=== PATIENT | female | born 1965 | race Caucasian/White ===

== ENCOUNTER 2024-11-18 17:17 | Emergency (ER) | payer BC, SELFPAY ==
[2024-11-18] VITALS (17 sets, daily range): BP systolic 145–156; BP diastolic 91–102; PULSE 94–130; RESP 10–20; TEMP 36.6; O2SAT 98–100; BMI 25.4
--- OUTSIDE RECORDS SUMMARY | 2024-11-18 17:19 | XMS_ITS | Clinical Summary ---
Author Organization [employer] [facility] Address [address] [place] [id number] Care Team Providers Care Clipper Machine Name Role Phone NoahHaylee MD Primary Care Provider Allergies No known active allergies Medications multivitamin (MVI) tablet Take 1 tablet by mouth. Take one tablet daily. Vitamin has additional vit d 0 0 Active cyclobenzaprine (FLEXERIL) 10 mg tabletIndications: Osteoarthritis of cervical spine, unspecified spinal osteoarthritis complication status Take 1 Tablet (10 mg) by mouth in the morning and 1 Tablet (10 mg) in the evening. 20 Tablet 2 Active hydrOXYzine pamoate (VISTARIL) 25 mg capsuleIndications :Anxiety Take 1-2 Capsules (25-50 mg) by mouth 3 times daily if needed for Anxiety. 15 capsule. 2 Active LORazepam (ATIVAN) 0.5 mg tabIndications:Anx iety Take 1-2 Tablets (0.5-1 mg) by mouth every 6 hours if needed for Anxiety. 15 tablet. 2 Active alendronate (FOSAMAX) 70 mg tabletIndications: Osteoporosis, unspecified osteoporosis type, unspecified pathological fracture presence Take 1 Tablet (70 mg) by mouth once a week in the morning. Take on empty stomach with full glass of water. Do not lie down for 1 hr. 12 Tablet 3 2 Active atovaquone-proguan il, 250-100 mg, (MALARONE) 250-100 mg tabletIndications: Need for malaria prophylaxis Take 1 Tablet by mouth once daily. Start 1-2 days prior to departure and continue for 1 week after return. 25 Tablet 3 Active Active Problems Problem Noted Date Diagnosed Date Pap smear for cervical cancer screening 02/22/20 22 Overview (05/01/2022): Plan: Pap and HPV 02/2027 Adenomatous colon polyp 07/23/2016 Overview (06/07/2022): Colonoscopy 07/2016 polyps repeat in 5 years Colonoscopy 05/2022 moderate diverticuli, repeat in 7-10 years, Pediatrics scope, propofol Stress incontinence 05/04/2013 Vitamin D deficiency 08/16/2009 Dermatophytosis of nail 07/23/2007 Overview (07/23/2007): toenails. has been treated with sporonox in the past. Osteoarthrosis, unspecified whether generalized or localized, unspecified site 07/23/2007 Overview (07/23/2007): neck Other general counseling and advice for contraceptive management 07/23/2007 Resolved Problems Problem Noted Date Diagnosed Date Resolved Date Lung nodule 03/03/2012 05/04/2013 Overview (03/03/2012): 5.6 mm nodule rll. Desiree Floyd M.D. 03/03/2012 10:00 PM Immunizations Immunization Administration Dates Next Due AMB Influenza, (Flumist) Bonita e Intranasal,LAIV4 (Flu Clinic Only) 07/08/2012 AMB Influenza, IIV3 (Age >=3 years)(Flu Clinic Only) 06/19/2013,07/04/2011,08/09/2010,2008,08/02/2008 AMB Influenza, IIV4 PF (=>6 mos Flulaval,Fluzone Fluarix)(Flu Clinic Only) 07/15/2018,06/18/2014 Hepatitis A (Adult) 07/22/2007,09/22/1997 Influenza RIV4 (Age 18+ Year s) PRESERV FREE 07/20/2022,05/10/2021 Influenza, IIV3 (Age >=3 years) 07/01/2007 Influenza, IIV4 07/02/2019, 8,06/27/2016,2014 Influenza, IIV4 (=>6mos) MDV 06/09/2020 Lyme Disease Vaccine 01/08/2000,02/03/1999,01/03 Td (Age >=7 Years) 09/22/1997 Tdap 10/18/2016,07/22/2007 Typhoid (injectable) 09/24/2022,11/20/2012 Zoster (Shingrix-RZV, recombinant) 06/09/2020, Family History Medical History Relation Name Comments Diabetes Father Heart Disease Father 4 bypass in 60 s, now in 80s, also leg bypass Heart Disease Mother tachycardia Other Mother Anesthesia Problem No Family History Blood Disease No Family History Cancer-breast No Family History Cancer-colon No Family History Relation Name Status Comments Father (Age 87) Mother Alive Social History Tobacco Use Types Packs/Day Years Used Date Smoking Tobacco: Never Smokeless Tobacco: Never Tobacco Cessation:Counseling Given: Yes Alcohol Use Standard Drinks/Week Comments Yes 0 (1 standard drink = 0.6 oz pur e alcohol) rarely PHQ-2 Answer Date Recorded PHQ-2 TOTAL SCORE 0 02/21/2022 Social Connections Answer Date Recorded Frequency of Communication with Friends and Fami ly Not on file 02/21/2022 Comments No Sex and Gender Information Value Date Recorded Sex Assigned at Not on file 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 Gender Identity Not on file Sexual Orientation Not on file 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 Not on file Not on file Not on file Obstetrics History Para Term AB IAB SAB Ectopic Multiple Livin g Live Births 3 3 3 Date Outcome GA Total Labor Labor/2nd/3rd Weight Sex Type Anes PTL Bonita A1 A5 Name Clin Para Para Para Last Filed Vital Signs Vital Sign Reading Time Taken Comments Blood Pressure 126/83 02/21/2022 8:22 AM CDT Pulse 118 02/21/2022 8:22 AM CDT Temperature 36.4 C (97.6 F) 08/24/2019 1:30 PM IT PROGRAMMER ANALYST Respiratory Rate 16 08/24/2019 2:15 PM IT PROGRAMMER ANALYST Oxygen Saturation 100% 02/21/2022 8:22 AM CDT Inhaled Oxygen Concentration - - Weight 57 kg (125 lb 9.6 oz) 02/21/2022 8:22 AM CDT Height 153 cm (5' 0.25) 02/21/2022 8:22 AM CDT Body Mass Index 24.33 02/21/2022 8:22 AM CDT Plan of Treatment Upcoming Encounters Date Type Department Care Team (Late st Contact Info) Description 12/09/2024 7:20 AM CDT Ancillary Procedure [facility] [address] [place] [address] 12/09/2024 8:00 AM CDT Office Visit [facility] [address] [place] [address] Haylee Zamora MD [address] [place] [address] Health Maintenance Due Date Last Done Comments HIV for age 15-65 1979 Pneumococcal series for age 50+ (1 of 1 - PCV) 2014 BMI (ht and wt on same day) for age 18+ 02/21/2023 02/21/2022, 08/13/2019, 07/02/2019, Additional history exists Depression screening for age 12+ 02/21/2023 02/21/2022, 08/13/2019, 10/18/2016 Mammogram for age 45-75 02/21/2023 02/22/20, 10/18/2016, 10/02/2015, Additional history exists COVID-19 vaccine series (2023- season) 2024 08/28/2021, 12/29/2020, 12/09/2020 Influenza Vaccine (#1) 2024 2, 05/10/2021, 06/09/2020, Additional history exists Lipids for age 45-75 07/02/2024 07/02/2019, 10/18/2016, 06/16/2012, Additional history exists Tetanus booster 10/18/2026 10/18/2016, 07/09, 09/22/1997 Pap test for age 21-65 02/21/2027 2, 02/21/2022, 10/02/2015, Additional history exists Colonoscopy through age 75 06/07/202706/07, 06/07/2022, 07/19/2016, Additional history exists RSV vaccine for adults or (1 - 1-dose 75+ series) 2039 Tdap Completed 10/18/2016, 07/22/2007 Zoster (shingles) series for age 50+ Completed 06/09/2020, 02/24/2020 Hepatitis C screening for ag e 18-79 Completed 02/21/2022 Procedures Procedure Name Priority Date/Time Associated Diagnosis Comments COLONOSCOPY 06/07/2022 7:41 AM CDT ANTI HCV Routine 02/21/2022 9:23 AM CDT Need for hepatitis C screening test HPV HIGH RISK Routine 02/21/2022 9:05 AM CDT Cervical cancer screening XR MAMMO BILAT SCREENING Routine 02/21/2022 8:15 AM CDT Visit for screening mammogram LIPID PANEL W REFLEX MEASURED LDL Routine 07/02/2019 11:13 AM CDT Lipid screening from Last 3 Months or Most Recently Relevant to Health Maintenance Results * COLONOSCOPY (06/07/2022 7:41 AM CDT) 06/07/2022 7:41 AM CDT Narrative Transcriptions Brett Chahal MD - 06/07/2022 8:34 AM CDT Patient Name: Yudy Rosa Procedure Date: 06/07/2022 Gender: Female Date of : 1965 Admit Type: Outpatient Procedure: Colonoscopy Proceduralist: Brett Chahal MD , Kimberly Solis (Nurse), Berna Bravo (Nurse) Indications/Pre-Op Diagnosis: High risk colon cancer surveillance:Personal history of adenoma less than 10 mm in size, Last colonoscopy: July 2016 Medications: Fentanyl 200 micrograms IV, Midazolam 4 mgIV, The level of sedation administered wasmoderate Procedure Description: The patient had risks, benefits and alternatives explained to andgave informed consent. The patient had a stable cardiopulmonary status and judged an adequate candidate for conscious sedation. The [id number] was passed through the anus and advanced tothe cecum, identified by appendiceal orifice and ileocecal valve. The colonoscopy was performed without difficulty. The patient toleratedthe procedure well. The quality of the bowel preparation was good. The ileocecal valve, appendiceal orifice, and rectum were photographed. Complications: No immediate complications. Estimated Blood Loss & Specimen: Estimated blood loss: none. Specimen collected - None Findings: The perianal and digital rectal examinations were normal. Multiple small-mouthed diverticula were found in the sigmoid colon. There was narrowing of the colon in association with the diverticular opening. The exam was otherwise without abnormality. Impressions/Post-Op Diagnosis: - Moderate diverticulosis in the sigmoid colon. There was narrowingof the colon in association with the diverticular opening. - The examination was otherwise normal. - No specimens collected. Recommendation: - Patient has a contact number available for emergencies. The signsand symptoms of potential delayed complications were discussed with the patient. Return to normal activities tomorrow. Written discharge instructions were provided to the patient. - Resume previous diet. - Continue present medications. - Repeat colonoscopy in 7-10 years for surveillance with a pediatric scope. - Patient's sedation for a repeat study will require Anesthesia staff assistance. Moderate Sedation: A time out was performed before the procedure. Moderate (conscious) sedation was administered by the endoscopy nurse and supervised bythe endoscopist. The following parameters were monitored: oxygensaturation, heart rate, blood pressure, EKG, CO2, respiratory rate, adequacy of pulmonary ventilation and reponse to care. Please refer to the patient's medical record flowsheets and nursing notes for moderate sedation details. Total physician intraservice time was 20 minutes. Brett Chahal MD 06/07/2022 8:34:16 AM This report has been signed electronically. Note Initiated On: 06/07/2022 7:41 AM Procedure Code(s): --- Professional --- 47898, Colonoscopy, flexible; diagnostic, including collection of specimen(s) bybrushing or washing, when performed (separateprocedure) Diagnosis Code(s): --- Professional --- Z86.010, Personal history of colonicpolyps K57.30, Diverticulosis of large intestine without perforation or abscess withoutbleeding CPT copyright 2020 [employer]. All rights reserved. The codes documented in this report are preliminary and upon tie carrier reviewmay be revised to meet current compliance requirements. Scope In: 8:09:57 AM Scope Withdrawal Time 0 hours 9 minutes 22 seconds Scope Out: 8:28:01 AM Brett Chahal MD PROCEDURE ORD Final Res ult * ANTI HCV (02/21/2022 9:23 AM CDT) HEPATITIS C ANTIBODY Non-React lucia Non-React lucia 02/21/2022 9:21 PM CDT [facility] Comment:Antibodies to HCV no t detected; does not exclude the possibility of exposure to HCV. Blood BLOOD SPECIMEN / Unknown Venipuncture / Unknown 02/21/2022 9:23 AM CDT 02/21/2022 9:24 AM CDT Haylee Zamora MD SEND OUTS Final R esult [facility] [address] [place] [address], * HPV HIGH RISK (02/21/2022 9:05 AM CDT) TYPE 16 Negative Negative 02/25/2022 11:46 AM CDT [facility] TYPE 18 Negative Negative 02/25/2022 11:46 AM CDT [facility] OTHER HIGH RISK TYPES Negative Negative 02/25/2022 11:46 AM CDT [facility] Other (Cervical) Non-Blood / Unknown 02/21/2022 9:05 AM CDT 02/22/2022 8:10 AM CDT Narrative [facility] - 02/25/2022 11:46 AM CDT HPV types 16, 18, 31, 33, 35, 39, 45, 51, 52, 56, 58, 59, 66 and 68 DNA were undetectable or below the pre-set threshold. Methodology: Destination Media Lindsay 4800 HPV Test us Haylee Zamora MD MICROBIOLOGY Final R esult [facility] [address] [place] [address], * XR MAMMO BILAT SCREENING (02/21/2022 8:15 AM CDT) Anatomical Region Laterality Modality BREASTS, Breast Left, Breast Right Bilateral Mammography Impressions 02/21/2022 3:51 PM CDT There is no radiographic evidence for malignancy. Recommend annual mammograms. MAMMOGRAM ASSESSMENT: ACR 1 Negative PATIENTS: You will also receive a letter with your examination results in an easy to read format. If you have questions about your results, please contact your referring provider. Narrative 02/21/2022 3:51 PM CDT For Patients: As a result of the Century Cures Act, medical imaging exams and procedure reports are released immediately into your electronic medical record. You may view this report before your referring provider. If you have questions, please contact your health care provider. XR MAMMO BILAT SCREENING [[id number]] CLINICAL HISTORY: This is an asymptomatic 56 y.o. patient. INDICATION FOR EXAM: Mammogram Screening. TECHNIQUE: CC & MLO views were obtained. This study was evaluated with the assistance of Computer-Aided Detection. COMPARISON FILM: Yes 10/18/16 [facility] 10/02/15 [facility] FINDINGS: The breasts have scattered areas of fibroglandular density. There are no dominant masses, suspicious micro calcifications or areas of architectural distortion. Haylee Zamora MD MAMMO Final R esult * (ABNORMAL) LIPID PANEL W REFLEX MEASURED LDL (07/02/2019 11:13 AM CDT) CHOLESTEROL,TOTAL 202(H) 100 - 199 mg/dL 07/02/2019 6:34 PM CDT [facility] TRIGLYCERIDES 44 <150 mg/dL 07/02/2019 6:34 PM CDT [facility] HDL CHOLESTEROL 72 >40 mg/dL 9 6:34 PM CDT [facility] NON-HDL CHOLESTEROL 130 <145 mg/dl 07/02/2019 6:34 PM CDT [facility] CHOL/HDL RATIO 2.81 <4.50 07/02/2019 6:34 PM CDT [facility] LDL CHOLESTEROL 121 <=130 mg/dL 07/02/2019 6:34 PM CDT [facility] PROVIDER ORDERED STATUS RANDOM 07/02/2019 6:34 PM CDT [facility] Blood BLOOD SPECIMEN / Unknown Venipuncture / Unknown 07/02/2019 11:13 AM CDT 07/02/2019 11:13 AM CDT Haylee Zamora MD CHEMISTRY Final R esult [facility] [address] [place] [address], [place] from Last 3 Months or Most Recently Relevant to Health Maintenance Insurance [employer] [id number] [facility] Advance Directives * Full Code (Latest Code Status on File) Date Activated Date Inactivated Comments 08/24/2019 7:08 AM 08/24/2019 4:40 PM Care Teams Clipper Machine Relationship Specialty Start Date End Date Haylee Zamora MD [address] [place] [address] PCP - General Family Practice 09/05/15
[2024-11-18 17:52] LABS: Basophils Absolute Auto 0.06 K/uL (0.00-0.30); Basophils Percent Auto 0.8 % (0.0-3.0); Eosinophils Absolute Auto 0.29 K/uL (0.00-0.50); Eosinophils Percent Auto 3.7 % (0.0-7.0); Hematocrit 40.8 % (33.0-51.0); Hemoglobin* 14.2 gm/dL (12.0-16.0); Immature Granulocytes Abs Auto 0.01 K/uL (0.00-0.30); Immature Granulocytes Pct Auto 0.1 %; Lymphocytes Absolute Auto 3.32 K/uL (0.90-2.90); Lymphocytes Percent Auto 42.1 % (20-44); Mean Corpuscular HGB Conc 35 gm/dL (32-36); Mean Corpuscular Hemoglobin 30 pg (26-34); Mean Corpuscular Volume 87 fL (80-100); Monocytes Percent Auto 5.8 % (0.0-11.0); Neutrophils Absolute Auto 3.75 K/uL (1.7-7.0); Neutrophils Percent Auto 47.5 % (42.0-72.0); Platelet Count* 347 K/uL (140-440); RDW Coefficient of Variation % 11.8 % (11.5-15.5); Red Blood Count 4.71 m/uL (4.00-5.20); White Blood Count* 7.89 K/uL (4.50-11.00)
--- NOTE | 2024-11-18 17:58 | ED.GENADULT ---
HPI - General Adult General Date Seen: 11/18/24 Chief complaint: Dizziness/Vertigo Stated complaint: lightheaded Time Seen by Provider: 11/18/24 17:23 Source: patient Mode of arrival: ambulatory Limitations: no limitations History of Present Illness HPI narrative: Patient is a 59-year-old female with no pertinent medical issues presenting to the emergency department for lightheadedness. She states for the past week she will have lightheadedness every time she wakes up and will improved by the end of the day. She states when she is driving to work in the morning she feels like it is difficult a but by the time she drives home everything seems normal. Symptoms were not improving today so she decided to come and get evaluated. She describes her symptoms as lightheadedness. Denies any sensation the room is spinning. Has not noticed any changes in her vision but does states she feels ?foggy.?Does not have any history of heart disease but her father had a heart attack at age 60. Denies ever having symptoms like this before. No associated chest pain or shortness of breath. Nothing really seems to make it better or worse. Has not had any syncopal episodes since the symptoms started. Does states she has syncopal episode a few years ago due to anxiety for a nose procedure. Admits to feeling stuffiness in her sinuses and is wondering if that could be related. Of note she is tachycardic in the 120s. She states that is normal for her whenever she sees a doctor. States this is she walks into the doctor's office she will feel her heart start racing like this and usually improves as she calms down. Has not noticed any palpitations with this lightheadedness. Does not have any chest pain or shortness of breath. Denies headaches, weakness, numbness, abdominal pain, fevers, chills. Not aware of any sick contacts. Related Data Home Medications ?Medication ?Instructions ?Recorded ?Confirmed No Known Home Medications 11/18/24 11/18/24 Allergies Allergy/AdvReac Type Severity Reaction Status Date / Time No Known Drug Allergies Allergy Verified 11/18/24 17:28 Review of Systems Status of ROS: Reports: 10 or more systems reviewed and unremarkable except as noted in History and below PFSH PFSH Social History Smoking Status: Never smoker How often do you have a drink containing alcohol: 2-4 times a month How often do you have six or more drinks on one occasion: Never AUDIT-C Alcohol total score: 2 Non-prescribed substance use: marijuana (any form) Exam Narrative: Exam Narrative: Const: Well-nourished, Well-developed, in mild distress Eyes: PERRL, no conjunctival injection, and symmetrical lids HENT: Atraumatic external nose and ears. Moist mucous membranes. Neck: Symmetric, trachea midline, No thyromegaly. CVS: RRR, No murmurs or gallops. Peripheral pulses 2+ and equal in all extremities RESP: Unlabored respiratory effort. Clear to auscultation bilaterally. GI: Nontender/Nondistended, No rebound or guarding. MSK:Extremities w/o deformity, Normal Active ROM Skin: Warm, Dry. No rashes or lesions. Neuro: Normal Muscle tone, No focal neurological deficits. Psych: Awake, Alert, & Oriented x3. Appropriate mood and affect. Const: Vital Signs, click to edit/add: Vital Signs - 24 hr 11/18/24 17:24 11/18/24 17:40 11/18/24 17:42 Temperature 97.8 F Pulse Rate 122 H Pulse Rate [Pulse Oximeter] 130 H Pulse Rate [orthos tatic lying Pulse Oximeter] Pulse Rate [orthos tatic sitting Puls e Oximeter] Pulse Rate [orthos tatic standing Pul se Oximeter] Respiratory Rate 16 10 L 17 Blood Pressure 151/97 H Blood Pressure [Ri ght Upper Arm] 156/91 H Blood Pressure [or thostatic lying Ri ght Arm] Blood Pressure [or thostatic sitting Right Arm] Blood Pressure [or thostatic standing Right Arm] Pulse Oximetry 100 99 Oxygen Delivery Me thod Room Air 11/18/24 17:45 11/18/24 17:46 11/18/24 17:47 Temperature Pulse Rate 118 H 112 H 114 H Pulse Rate [Pulse Oximeter] Pulse Rate [orthos tatic lying Pulse Oximeter] Pulse Rate [orthos tatic sitting Puls e Oximeter] Pulse Rate [orthos tatic standing Pul se Oximeter] Respiratory Rate 14 20 12 Blood Pressure 148/99 H Blood Pressure [Ri ght Upper Arm] Blood Pressure [or thostatic lying Ri ght Arm] Blood Pressure [or thostatic sitting Right Arm] Blood Pressure [or thostatic standing Right Arm] Pulse Oximetry 100 100 100 Oxygen Delivery Me thod 11/18/24 17:55 11/18/24 17:57 11/18/24 17:58 Temperature Pulse Rate 103 H 106 H Pulse Rate [Pulse Oximeter] Pulse Rate [orthos tatic lying Pulse Oximeter] 103 H Pulse Rate [orthos tatic sitting Puls e Oximeter] 109 H Pulse Rate [orthos tatic standing Pul se Oximeter] 122 H Respiratory Rate 13 Blood Pressure 153/96 H 156/102 H Blood Pressure [Ri ght Upper Arm] Blood Pressure [or thostatic lying Ri ght Arm] 153/96 H Blood Pressure [or thostatic sitting Right Arm] 156/102 H Blood Pressure [or thostatic standing Right Arm] 145/99 H Pulse Oximetry 99 100 Oxygen Delivery Ca thod 11/18/24 18:00 11/18/24 18:01 11/18/24 18:02 Temperature Pulse Rate 105 H 108 H 102 H Pulse Rate [Pulse Oximeter] Pulse Rate [orthos tatic lying Pulse Oximeter] Pulse Rate [orthos tatic sitting Puls e Oximeter] Pulse Rate [orthos tatic standing Pul se Oximeter] Respiratory Rate 11 L Blood Pressure 145/99 H 151/93 H Blood Pressure [Ri ght Upper Arm] Blood Pressure [or thostatic lying Ri ght Arm] Blood Pressure [or thostatic sitting Right Arm] Blood Pressure [or thostatic standing Right Arm] Pulse Oximetry 100 99 98 Oxygen Delivery Ca thod 11/18/24 18:15 11/18/24 18:30 11/18/24 18:45 Temperature Pulse Rate 94 109 H 98 Pulse Rate [Pulse Oximeter] Pulse Rate [orthos tatic lying Pulse Oximeter] Pulse Rate [orthos tatic sitting Puls e Oximeter] Pulse Rate [orthos tatic standing Pul se Oximeter] Respiratory Rate 18 13 12 Blood Pressure Blood Pressure [Ri ght Upper Arm] Blood Pressure [or thostatic lying Ri ght Arm] Blood Pressure [or thostatic sitting Right Arm] Blood Pressure [or thostatic standing Right Arm] Pulse Oximetry 100 100 100 Oxygen Delivery Ca thod 11/18/24 19:00 11/18/24 19:01 Temperature Pulse Rate 97 102 H Pulse Rate [Pulse Oximeter] Pulse Rate [orthos tatic lying Pulse Oximeter] Pulse Rate [orthos tatic sitting Puls e Oximeter] Pulse Rate [orthos tatic standing Pul se Oximeter] Respiratory Rate 10 L 13 Blood Pressure 149/98 H Blood Pressure [Ri ght Upper Arm] Blood Pressure [or thostatic lying Ri ght Arm] Blood Pressure [or thostatic sitting Right Arm] Blood Pressure [or thostatic standing Right Arm] Pulse Oximetry 99 99 Oxygen Delivery Me thod Course Vital Signs Vital signs: Initial Vital Signs Temperature 97.8 F 11/18/24 17:24 Temperature Source Temporal Artery Scan 11/18/24 17:24 Pulse Rate 130 H 11/18/24 17:24 Respiratory Rate 16 11/18/24 17:24 Blood Pressure 156/91 H 11/18/24 17:24 Blood Pressure Mean 112 H 11/18/24 17:24 Blood Pressure Position Sitting 11/18/24 17:24 Pulse Oximetry 100 11/18/24 17:24 Oxygen Delivery Method Room Air 11/18/24 17:24 Vital Signs Temperature 97.8 F 11/18/24 17:24 Pulse Rate 130 H 11/18/24 17:24 Respiratory Rate 16 11/18/24 17:24 Blood Pressure 156/91 H 11/18/24 17:24 Pulse Oximetry 100 11/18/24 17:24 Oxygen Delivery Method Room Air 11/18/24 17:24 Temperature 97.8 F 11/18/24 17:24 Pulse Rate 102 H 11/18/24 19:01 Respiratory Rate 13 11/18/24 19:01 Blood Pressure 149/98 H 11/18/24 19:01 Pulse Oximetry 99 11/18/24 19:01 Oxygen Delivery Method Room Air 11/18/24 17:24 Medications Administered Medications: Discontinued Medications Generic Name Dose Route Start Last Admin Trade Name Freq PRN Reason Stop Dose Admin Lactated Ringer's 1,000 mls @ 1,000 mls/hr 11/18/24 18:01 11/18/24 19:21 Lactated Ringers 1000 Ml IV 11/18/24 19:00 Infused .Q1H ONE Infusion Medical Decision Making MDM Narrative Medical decision making narrative: Patient is a 59-year-old female presenting for lightheadedness. Differential is broad. Includes ACS, electrolyte abnormalities, valvular disorders, vasovagal syncope, dehydration, anemia. She looks well overall him my concern for PE, aortic dissection, aortic aneurysm is low. Will give her some fluids for possible dehydration. Order CBC, BMP, TSH. Also ordered EKG and troponin. Orthostatic blood pressures will be done. Will continue to monitor heart rate to see if it improves. Orthostatic blood pressures showed no concerning findings. Lab work shows no concerning abnormalities. Potassium is very slightly low unlikely to be causing her symptoms. Will replenish this though. EKG shows sinus tachycardia by her heart rate has improved to the 80s after the fluids. She does states she is feeling better. Unsure if this is due to the fluids or chest natural progression of her symptoms. She does states she thinks her lack of sleep is part of her problem. She states she has a very light sleeper and has not been sleeping well the past few weeks. Admits that she did not sleep much at all last night. I informed issues to follow-up with the primary care provider. She agrees with this plan. Lab Data Labs: Lab Results 11/18/24 11/18/24 Range/Units 17:43 17:45 WBC 7.89 (4.50-11.00) K/uL RBC 4.71 (4.00-5.20) m/uL Hgb 14.2 (12.0-16.0) gm/dL Hct 40.8 (33.0-51.0) % MCV 87 (80-100) fL MCH 30 (26-34) pg MCHC 35 (32-36) gm/dL RDW Coeff of Olivia 11.8 (11.5-15.5) % Plt Count 347 (140-440) K/uL Neut % (Auto) 47.5 (42.0-72.0) % Lymph % (Auto) 42.1 (20-44) % [place] % (Auto) 5.8 (0.0-11.0) % Eos % (Auto) 3.7 (0.0-7.0) % Baso % (Auto) 0.8 (0.0-3.0) % Neut # (Auto) 3.75 (1.7-7.0) K/uL Lymph # (Auto) 3.32 H (0.90-2.90) K/uL [place] # (Auto) 0.50 (0.00-0.90) K/UL Eos # (Auto) 0.29 (0.00-0.50) K/uL Baso # (Auto) 0.06 (0.00-0.30) K/uL Abs Immat Gran (auto) 0.01 (0.00-0.30) K/uL Imm/Tot Granulo (auto) 0.1 % Sodium 137 (135-149) mmol/L Potassium 3.2 L (3.6-5.1) mmol/L Chloride 102 (96-114) mmol/L Carbon Dioxide 23 (20-32) mmol/L Anion Gap 12 (7-15) mEq/L BUN 10 (7-30) mg/dL Creatinine 0.6 (0.5-1.5) mg/dL Estimated Creat Clear 71.62 Estimated GFR 103 ml/min Glucose 122 H (60-115) mg/dL Calcium 9.2 (8.4-10.6) mg/dL Magnesium 2.2 (1.5-2.6) mg/dL TSH 3.440 (0.270-4.200) uIU/mL POC Troponin I 0.00 L (0.01-0.04) ng/ml ECG Data Attestation: I personally reviewed and interpreted this ECG as follows: Prior ECG tracings: not available for review Interpretation: Mom sinus tachycardia with a rate of 129 beats per minute, normal intervals, normal axis, no ST or T-wave abnormalities. Discharge Plan Discharge Clinical Impression: Intermittent lightheadedness Patient Disposition: Home, Self-Care Condition: Improved Instructions: Lightheadedness (ED) Additional Instructions: I am not sure what is causing your symptoms but make sure to follow-up with your primary care provider. Return to emergency department for new or worsening symptoms Prescriptions: No Action No Known Home Medications Follow Up/Referrals: Haylee Zamora MD [Primary Care Provider] - Stand Alone Forms: [employer] Info Instructions
[2024-11-18] MEDS: LACTATED RINGERS 1000 ML 1,000 ML IV (18:12)
--- OUTSIDE RECORDS SUMMARY | 2024-11-18 18:36 | XMS_ITS | Clinical Summary ---
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 Not on file Not on file Not [...] 36.4 C (97.6 F) 08/24/2019 1:30 PM [employer] Respiratory Rate 16 08/24/2019 2:15 PM [employer] Oxygen Saturation 100% 02/21/2022 8:22 AM CDT Inhaled Oxygen Concentration - - Weight 57 kg (125 lb 9.6 oz) 02/21/2022 8:22 AM CDT Height 153 cm (5' 0.25) 02/21/2022 8:22 AM CDT Body Mass Index 24.33 02/21/2022 8:22 AM CDT Plan of Treatment Upcoming Encounters Date Type Department Care Team (Late st Contact Info) Description 12/09/2024 7:20 AM CDT Ancillary Procedure [facility] [address] [place] [address] 12/09/2024 8:00 AM CDT Office Visit [facility] [address] [place] [address] Haylee Zamora MD [address] [place] [address] Health Maintenance Due Date Last Done Comments [...] adequate candidate for conscious sedation. The [id number] was passed through the anus and advanced [...] 7:41 AM Procedure Code(s): --- Professional --- 41609, Colonoscopy, flexible; diagnostic, including collection of specimen(s) bybrushing or washing, when performed (separateprocedure) Diagnosis Code(s): --- Professional --- Z86.010, Personal history of colonicpolyps K57.30, Diverticulosis of large intestine without perforation or abscess withoutbleeding CPT copyright 2020 [employer]. All rights reserved. The codes documented in this report are preliminary and upon special education superintendent reviewmay be revised to meet current compliance requirements. Scope In: 8:09:57 AM Scope Withdrawal Time 0 hours 9 minutes 22 seconds Scope Out: 8:28:01 AM Brett Chahal MD PROCEDURE ORD Final Res ult * ANTI HCV (02/21/2022 9:23 AM CDT) HEPATITIS C ANTIBODY Non-React lucia Non-React lucia 02/21/2022 9:21 PM CDT [facility] [facility] Comment:Antibodies to HCV no t detected; does not exclude the possibility of exposure to HCV. Blood BLOOD SPECIMEN / Unknown Venipuncture / Unknown 02/21/2022 9:23 AM CDT 02/21/2022 9:24 AM CDT Haylee Zamora MD SEND OUTS Final R esult [facility] [address] [place] [address], * HPV HIGH RISK (02/21/2022 9:05 AM CDT) TYPE 16 Negative Negative 02/25/2022 11:46 AM CDT [facility] TYPE 18 Negative Negative 02/25/2022 11:46 AM CDT [facility] OTHER HIGH RISK TYPES Negative Negative 02/25/2022 11:46 AM CDT [facility] Other (Cervical) Non-Blood / Unknown 02/21/2022 9:05 AM CDT 02/22/2022 8:10 AM CDT Narrative [facility] - 02/25/2022 11:46 AM CDT HPV types 16, 18, 31, 33, 35, 39, 45, 51, 52, 56, 58, 59, 66 and 68 DNA were undetectable or below the pre-set threshold. Methodology: Fast Drinks Lindsay 4800 HPV Test us Haylee Zamora MD MICROBIOLOGY Final R esult [facility] [address] [place] [address], * XR MAMMO BILAT SCREENING (02/21/2022 8:15 [...] health care provider. XR MAMMO BILAT SCREENING [[id number]] CLINICAL HISTORY: This is an asymptomatic 56 y.o. patient. INDICATION FOR EXAM: Mammogram Screening. TECHNIQUE: CC & MLO views were obtained. This study was evaluated with the assistance of Computer-Aided Detection. COMPARISON FILM: Yes 10/18/16 [facility] 10/02/15 [facility] FINDINGS: The breasts have scattered areas of fibroglandular density. There are no dominant masses, suspicious micro calcifications or areas of architectural distortion. Haylee Zamora MD MAMMO Final R esult * (ABNORMAL) LIPID PANEL W REFLEX MEASURED LDL (07/02/2019 11:13 AM CDT) CHOLESTEROL,TOTAL 202(H) 100 - 199 mg/dL 07/02/2019 6:34 PM CDT [facility] TRIGLYCERIDES 44 <150 mg/dL 07/02/2019 6:34 PM CDT [facility] HDL CHOLESTEROL 72 >40 mg/dL 9 6:34 PM CDT [facility] NON-HDL CHOLESTEROL 130 <145 mg/dl 07/02/2019 6:34 PM CDT [facility] CHOL/HDL RATIO 2.81 <4.50 07/02/2019 6:34 PM CDT [facility] LDL CHOLESTEROL 121 <=130 mg/dL 07/02/2019 6:34 PM CDT [facility] PROVIDER ORDERED STATUS RANDOM 07/02/2019 6:34 PM CDT [facility] Blood BLOOD SPECIMEN / Unknown Venipuncture / Unknown 07/02/2019 11:13 AM CDT 07/02/2019 11:13 AM CDT Haylee Zamora MD CHEMISTRY Final R esult [facility] [address] [place] [address], [place] from Last 3 Months or Most Recently Relevant to Health Maintenance Insurance [place] [id number] [facility] Advance Directives * Full Code (Latest Code Status on File) Date Activated Date Inactivated Comments 08/24/2019 7:08 AM 08/24/2019 4:40 PM Care Teams Alliances Consultant Relationship Specialty Start Date End Date Haylee Zamora MD [address] [place] [address] PCP - General Family Practice 09/05/15
[2024-11-18 18:38] LABS: Slide Review Reflex No
[2024-11-18 18:46] LABS: Chloride* 102 mmol/L (96-114); Potassium* 3.2 mmol/L (3.6-5.1); Sodium* 137 mmol/L (135-149)
[2024-11-18 18:49] LABS: Anion Gap 12 mEq/L (7-15); Blood Urea Nitrogen* 10 mg/dL (7-30); Calcium* 9.2 mg/dL (8.4-10.6); Carbon Dioxide* 23 mmol/L (20-32); Creatinine* 0.6 mg/dL (0.5-1.5); Est. Creatinine Clearance* 71.62; Estimated Glomerular Filt Rate 103 ml/min; Glucose* 122 mg/dL (60-115)
[2024-11-18 18:50] LABS: Magnesium* 2.2 mg/dL (1.5-2.6)
[2024-11-18] MEDS: POTASSIUM BICARB 25 MEQ EFFERVESCENT TAB PO (20:19)
== END 2024-11-18 20:25 | disposition home or self-care (01) ==
PROVIDERS: Emergency Provider Student in an Organized Health Care Education/Training Program; PCP Family Medicine
DX: R42 Dizziness and giddiness (principal)
CPT/HCPCS: 36415; 80048; 83735; 84443; 84484; 85025; 93005; 99284; A9270; J7120